=== PATIENT | female | born 1935 | race Caucasian/White ===

== ENCOUNTER 2018-11-10 20:54 | Observation (INO) | payer MEDICARE ==
[2018-11-10] MEDS ORDERED: Ondansetron ODT 4 MG TAB ONE (21:07)
[2018-11-10] MEDS ORDERED: Meclizine HCl 25 MG TAB ONE (21:42)
[2018-11-10 21:48] LABS: #Basophils 0.1 thou/uL (0.0-0.2); #Eosinphils 0.3 thou/uL (0.0-0.7); #Lymphocytes 2.3 thou/uL (1.20-3.40); #Monocytes 0.7 thou/uL (0.11-0.59); %Basophils 1.2 % (0.0-1.0); %Eosinophils 2.7 % (0.0-10.0); %Lymphocytes 24.3 % (21.0-51.0); %Monocytes 7.5 % (0.0-10.0); %Neutrophils 64.3 % (42.0-75.0); Mean Corpuscular Hemoglobin 28.7 pg (27.0-31.0); Mean Corpuscular Volume 86.9 fL (78.0-98.0); Mean Platelet Volume 7.5 fL (7.4-10.4); Platelet Count 343 thou/uL (130-400); RBC Distribution Width 12.2 % (11.5-14.5); Red Blood Cell (RBC) Count 3.83 mill/uL (4.20-5.40); White Blood Cell (WBC) Count 9.4 thou/uL (4.8-10.8)
[2018-11-10 21:54] LABS: PTT 29.5 SEC (22.9-36.1); Prothrombin Time 13.4 SEC (12.0-14.7)
[2018-11-10 22:07] LABS: ALT (SGPT) 11 U/L (8-55); AST (SGOT) 21 U/L (5-34); Albumin 3.8 g/dL (3.4-4.8); Alkaline Phosphatase 106 U/L (40-150); Anion Gap 17 mmol/L (10-20); BUN (Urea Nitrogen) 18 mg/dL (9.8-20.1); Bilirubin, Total 0.6 mg/dL (0.2-1.2); Calc. Creatinine Clearance 0 mL/min (70-130); Calcium 9.4 mg/dL (7.8-10.44); Carbon Dioxide 22 mmol/L (23-31); Chloride 92 mmol/L (98-107); Estimated GFR-MDRD 49; Globulin 3.6 g/dL (2.4-3.5); Glucose 99 mg/dL (83-110); Potassium 4.4 mmol/L (3.5-5.1); Protein, Total 7.4 g/dL (6.0-8.3); Sodium 127 mmol/L (136-145)
[2018-11-10 22:16] LABS: Bilirubin Negative (Negative); Blood, Urine Negative (Negative); Clarity CLEAR (Clear); Glucose, Urine (Dipstick) Negative (Negative); Leukocyte Negative (Negative); Nitrite Negative (Negative); Protein, Urine (Dipstick) Negative (Neg-Trace); Urobilinogen 0.2 mg/dL (0.2-1.0); pH, Urine 7.5 (5.0-9.0)
--- NOTE | 2018-11-10 22:19 | CT ---
CT OF THE BRAIN WITHOUT CONTRAST: 11/10/18 HISTORY: Acute vertigo. FINDINGS: Comparison made with exam of 03/03/15. Changes of chronic small vessel ischemic disease are again seen. The ventricular size is stable and t he basilar cisterns patent. No evidence of acute infarct, hemorrhage, midline shift or abnormal extra -axial fluid collections are seen. The bone calvarium is intact. There is mucosal disease in the para nasal sinuses. Air fluid levels are also seen in the maxillary sinuses. The mastoid air cells are hood ar. IMPRESSION: 1. No CT evidence of acute intracranial process. 2. Acute on chronic sinusitis. POS: [facility]
[2018-11-11 01:46] LABS: Troponin I Less than 0.010 ng/mL (< 0.028)
[2018-11-11 05:03] LABS: Troponin I Less than 0.010 ng/mL (< 0.028)
[2018-11-11] MEDS ORDERED: Ondansetron ODT 4 MG TAB SL PRN (06:41)
[2018-11-11] MEDS ORDERED: Ondansetron PF 4 MG/2 ML Vial IVP PRN ×2 (06:41→15:37)
[2018-11-11] MEDS ORDERED: Acetaminophen 500 MG TAB PO PRN (15:37)
[2018-11-11] MEDS ORDERED: hydrALAZINE 20 MG/ML VIAL SLOW IVP PRN (15:37)
[2018-11-11] MEDS ORDERED: Ondansetron ODT 4 MG TAB PO PRN (15:37)
[2018-11-11] MEDS: Sodium Chloride 0.9% 1,000 ML IV SCH (17:58)
[2018-11-11 19:58] VITALS: BMI 18.2
[2018-11-11] MEDS ORDERED: Meclizine HCl 25 MG TAB PO SCH (20:45)
[2018-11-11] MEDS: Lisinopril 20 MG TAB PO SCH (20:59)
[2018-11-11] MEDS: Carvedilol 25 MG TAB PO SCH (20:59)
[2018-11-11] MEDS ORDERED: Atorvastatin Calcium 20 MG TAB PO SCH (21:00)
[2018-11-11] MEDS ORDERED: Digoxin 0.125 MG TAB PO SCH (21:00)
[2018-11-11] MEDS ORDERED: Amlodipine 5 MG TAB PO SCH (21:00)
[2018-11-11] MEDS ORDERED: Aspirin 325 MG TAB PO SCH (21:00)
[2018-11-11] MEDS ORDERED: Famotidine 20 MG TAB PO SCH (21:00)
[2018-11-12] MEDS: Sodium Chloride 0.9% 1,000 ML IV SCH ×2 (00:29→03:51)
--- NOTE | 2018-11-12 01:51 | HP ---
PRIMARY CARE PROVIDER: Ajay Askew MD CHIEF COMPLAINT: Dizziness and nausea. HISTORY OF PRESENT ILLNESS: This is an 83-year-old female, who presents to [facility] Emergency Department after experiencing sudden onset of dizziness, nausea and emesis while at home. The patient states the symptoms began around 16:30 p.m. on 11/10/2018 with several episodes of emesis and nausea. The patient denied any unilateral weakness, visual disturbance, loss of consciousness, recent travel history, family members with similar symptoms or fever. The patient states she has been feeling well up until this episode but does state approximately 3 to 4 years prior to this evaluation, she had an episode of dizziness followed by syncope and confusion. The family reports the patient did seem confused and glazed in her eyes while talking with her, and became concerned. The patient's family states that the patient has had no change to her chronic medication regimen. No new exposures, travel history, diarrhea, or recent antibiotics. The patient did not try any specific alleviating medications. In the emergency room, the patient underwent general evaluation including CT imaging of the brain showing no acute process. Metabolic screening did show evidence of hyponatremia with sodium of 127 at which point, the patient received intravenous normal saline x1 liter in addition to meclizine 25 mg x1 dose. The patient also received Zofran and states her symptoms have resolved. PAST MEDICAL HISTORY: 1. Intermittent vertigo. 2. Question of early Alzheimer's dementia. 3. Hyperlipidemia. 4. Hypertension. 5. History of syncope. 6. Chronic sinusitis. 7. Chronic kidney disease, stage 3. PAST SURGICAL HISTORY: 1. Status post sinus surgery. 2. Status post esophageal dilation. 3. Status post hysterectomy. 4. Status post back surgery. CURRENT MEDICATIONS: 1. Norvasc 5 mg p.o. at bedtime. 2. Enteric-coated aspirin 325 mg p.o. at bedtime. 3. Lipitor 20 mg p.o. at bedtime. 4. Carvedilol 12.5 mg p.o. b.i.d. 5. Digoxin 0.125 mg p.o. at bedtime. 6. Furosemide 20 mg p.o. daily. 7. Lisinopril 20 mg p.o. b.i.d. 8. Omeprazole 20 mg p.o. daily. ALLERGIES: NO KNOWN DRUG ALLERGIES. FAMILY HISTORY: Father of complications of coronary artery disease. SOCIAL HISTORY: The patient is , accompanied by her and daughter in the hospital. Resides near [place], [place]. No current alcohol, tobacco, or illicit drug use. Functional of all activities of daily living. REVIEW OF SYSTEMS: CONSTITUTIONAL: Negative for weight loss or gain, ability to conduct usual activities. SKIN: Negative for rash, itching. EYES: Negative for double vision, pain. ENT/MOUTH: Negative for nose bleeding, neck stiffness, pain, tenderness. CARDIOVASCULAR: Negative for palpitations, dyspnea on exertion, orthopnea. RESPIRATORY: Negative for shortness of breath, wheezing, cough, hemoptysis, fever or night sweats. GASTROINTESTINAL: Negative for poor appetite, abdominal pain, heartburn, nausea, vomiting, constipation, or diarrhea. GENITOURINARY: Negative for urgency, frequency, dysuria, nocturia. MUSCULOSKELETAL: Negative for pain, swelling. NEUROLOGIC/PSYCHIATRIC: Negative for anxiety, depression. ALLERGY/IMMUNOLOGIC: Negative for skin rash, bleeding tendency. Otherwise, negative except as stated per HPI. PHYSICAL EXAMINATION: VITAL SIGNS: On admission, blood pressure 129/60, pulse 63, respiratory rate 14, temperature 97.7 degrees Fahrenheit, O2 saturation 98% on room air. GENERAL APPEARANCE: This is an 83-year-old female, alert and oriented x3, pleasant, responsive, in no acute distress. HEENT: Pupils are equal, round, reactive to light and accommodation. Extraocular muscles are intact. No scleral icterus. No conjunctival injection. No nystagmus noted. Nares patent. OP is clear. Teeth in good repair. Oral mucosa dry. NECK: Supple. No cervical adenopathy. No thyromegaly. No carotid bruits. No JVD appreciated. Cervical spine with full active and passive range of motion. No meningeal signs noted. CHEST: Lungs are clear to auscultation bilaterally. CARDIOVASCULAR: S1-S2 without noted murmur, rub, or gallop. ABDOMEN: Rounded, soft, nontender, and nondistended. Bowel sounds are positive in all 4 quadrants. No hepatosplenomegaly. No abdominal bruits. No rebound or guarding appreciated. EXTREMITIES: Warm and dry with fair turgor. No clubbing, cyanosis, or asymmetric edema appreciated. Pulses palpable distally at the dorsalis pedis, posterior tibial and popliteal arteries bilaterally. Capillary refill less than 2 seconds. NEUROLOGIC: Cranial nerves 2 through 12 are grossly intact. No focal or lateralizing signs appreciated. PERTINENT LAB AND X-RAY FINDINGS: Sodium 127, potassium 4.4, chloride 92, CO2 of 22, BUN 18, creatinine 1.07, estimated GFR 49, glucose 99, calcium 9.4, lactic acid level 0.8. LFTs within normal limits. Troponin I negative x3. CBC showed a white blood cell count of 9.4, hemoglobin 11, hematocrit 33, and platelet count 343. Urinalysis negative. CT of the brain without contrast dated 11/10/2018 by my review shows no acute intracranial process. EKG dated 11/10/2018 by my review shows sinus mechanism with heart rates in the 50s. Attenuated R-waves noted in the precordial leads. Normal axis. No acute ST-T wave changes noted. ASSESSMENT AND PLAN: 1. Vertigo. Suspect positional vertigo. We will continue IV fluids with normal saline 100 mL/h. Trial meclizine 25 mg p.o. q.6 hours p.r.n. Check TSH, magnesium level, and digoxin level in the a.m. 2. Hyponatremia. Suspect secondary to dehydration in conjunction with diuretic therapy. Hold all diuretics. Continue intravenous normal saline at 100 mL/h. Repeat sodium level in the a.m. 3. Nausea and vomiting. We will continue antiemetics with Zofran. IV fluids as stated previously. 4. Hypertension. Resume home antihypertensive regimen and monitor clinical response. 5. Normocytic anemia. Appears chronic and stable when compared to previous hemoglobins dating back to 2011. No current evidence to suggest acute blood loss. Repeat CBC in the a.m. 6. Prophylaxis. SCDs while in bed. Pepcid 20 mg p.o. b.i.d. 7. Code status is full. Surrogate medical decision maker is patient's spouse. Job ID: [id number]
[2018-11-12] MEDS ORDERED: Meclizine HCl 25 MG TAB PO SCH (06:00)
[2018-11-12 07:30] LABS: Anion Gap 11 mmol/L (10-20); BUN (Urea Nitrogen) 11 mg/dL (9.8-20.1); Calc. Creatinine Clearance 39 mL/min (70-130); Calcium 9.3 mg/dL (7.8-10.44); Carbon Dioxide 24 mmol/L (23-31); Chloride 103 mmol/L (98-107); Digoxin 0.72 ng/mL (0.8-2.0); Estimated GFR-MDRD 62; Glucose 85 mg/dL (83-110); Magnesium 1.8 mg/dL (1.6-2.6); Potassium 4.2 mmol/L (3.5-5.1); Sodium 134 mmol/L (136-145)
[2018-11-12 07:41] LABS: Eosinophils 3 % (0-10); Hemoglobin 11.1 g/dL (12.0-16.0); Lymphocytes 28 % (21-51); MDiff Complete? YES; Mean Corpuscular HGB CONC 32.6 g/dL (32.0-36.0); Mean Corpuscular Hemoglobin 29.2 pg (27.0-31.0); Mean Corpuscular Volume 89.8 fL (78.0-98.0); Mean Platelet Volume 7.5 fL (7.4-10.4); Monocytes 5 % (0-10); Neutrophil 64 % (42-75); Platelet Count 285 thou/uL (130-400); RBC Distribution Width 12.4 % (11.5-14.5); Red Blood Cell (RBC) Count 3.79 mill/uL (4.20-5.40); White Blood Cell (WBC) Count 8.6 thou/uL (4.8-10.8)
[2018-11-12 07:58] VITALS: TEMP 96.9
[2018-11-12] MEDS ORDERED: Prevnar 13-Val Conj/PF 0.5 ML SYRINGE IM ONE (09:00)
[2018-11-12] MEDS ORDERED: Famotidine 20 MG TAB PO SCH (09:00)
[2018-11-12] MEDS: Carvedilol 25 MG TAB PO SCH (09:53)
[2018-11-12] MEDS: Lisinopril 20 MG TAB PO SCH (09:54)
[2018-11-12 10:00] VITALS: BP 132/61
--- NOTE | 2018-11-12 10:19 | PDOC.EVN ---
Event Note - Event Note Event Note: DC SUMMARY #[id number]
--- NOTE | 2018-11-12 20:51 | DIS ---
DATE OF ADMISSION: 11/10/2018 DATE OF DISCHARGE: 11/12/2018 ADMITTING DIAGNOSES: Vertigo, hyponatremia, altered mental status, confusion, nausea, vomiting. DISCHARGE DIAGNOSES: 1. Vertigo, resolved. 2. Hyponatremia, resolved. 3. Nausea, vomiting, confusion, resolved. HOSPITAL COURSE: This is an 83-year-old female, who presented to the hospital with the symptoms mentioned above, was admitted to Internal Medicine Team, found to have a low sodium. Given IV fluids, repeat sodium levels were found to be 132. Symptoms completely resolved. The patient's family stated that the family does not eat a whole bunch of food and has been drinking too much water as well. The patient's family was advised that the patient should have salt added to her diet and check her blood pressure. If the systolic blood pressure is below 140, they can continue adding salt to her diet; however, systolic blood pressure is above 140. They should hold off on adding more salt to her diet. The patient's symptoms were resolved given her hyponatremia resolution and thus, family was advised that they should continue watching her dietary intake. Repeat lab work in 1-2 weeks with her PCP, make sure sodium levels are not dropping. The patient is stable upon time of discharge. Case and plan discussed with the entire family and the patient at length. They understood and agreed with this plan. DISPOSITION: Home. FOLLOWUP: Follow up with PCP within 1 week. MEDICATIONS: See MAR. ACTIVITY: As tolerated with assistance as needed. CONDITION: Stable. PROGNOSIS: Good. Once again case and plan discussed with patient at length. Family at bedside, they understand and agree with this plan. Job ID: [id number]
== END 2018-11-12 12:27 | disposition home or self-care (01) ==
LOC: ERS 20:54 → INTOOBSV 22:36 → ERHOLD 22:36 → 2NO 11-11 13:39
PROVIDERS: ADMIT Hospitalist; ATTEND Hospitalist
DX: R42 Dizziness and giddiness (principal); E87.1 Hypo-osmolality and hyponatremia; R11.2 Nausea with vomiting, unspecified; R41.0 Disorientation, unspecified; E78.5 Hyperlipidemia, unspecified; J32.9 Chronic sinusitis, unspecified; I12.9 Hypertensive chronic kidney disease with stage 1 through stage 4 chronic kidney disease, or unspecified chronic kidney disease; N18.3 Chronic kidney disease, stage 3 (moderate); D63.1 Anemia in chronic kidney disease; Z79.82 Long term (current) use of aspirin; Z79.899 Other long term (current) drug therapy
CPT/HCPCS: 51701; 70450; 80048; 80053; 80162; 81003; 82962; 83605; 83735; 84443; 84484 ×3; 85007; 85025; 85027; 85610; 85730; 90670; 93005; 96360; 96361 ×2; 99285; G0009; G0378; 36415; 36416; 90471; A4353; J8499; Q0162

== ENCOUNTER 2019-02-28 21:34 | Observation (INO) | payer MEDICARE ==
[2019-02-28 21:59] LABS: #Basophils 0.1 thou/uL (0.0-0.2); #Eosinphils 0.3 thou/uL (0.0-0.7); #Monocytes 1.1 thou/uL (0.11-0.59); #Neutrophils 5.7 thou/uL (1.40-6.50); %Basophils 0.6 % (0.0-1.0); %Eosinophils 2.7 % (0.0-10.0); %Lymphocytes 29.6 % (21.0-51.0); %Monocytes 10.4 % (0.0-10.0); %Neutrophils 56.7 % (42.0-75.0); Mean Corpuscular HGB CONC 34.2 g/dL (32.0-36.0); Mean Corpuscular Hemoglobin 29.6 pg (27.0-31.0); Mean Corpuscular Volume 86.5 fL (78.0-98.0); Mean Platelet Volume 6.8 fL (7.4-10.4); Platelet Count 372 thou/uL (130-400); RBC Distribution Width 12.4 % (11.5-14.5); Red Blood Cell (RBC) Count 3.72 mill/uL (4.20-5.40); White Blood Cell (WBC) Count 10.1 thou/uL (4.8-10.8)
--- NOTE | 2019-02-28 22:02 | RAD ---
XR Chest 1 View Portable HISTORY: Chest pain COMPARISON: None. FINDINGS: Heart size is within normal limits there are atherosclerotic changes of aorta the lungs are clear of infiltrates there are mild chronic lung changes seen. The bones appear demineralized. IMPRESSION: No active intrathoracic disease.
[2019-02-28 22:23] LABS: ALT (SGPT) 20 U/L (8-55); AST (SGOT) 36 U/L (5-34); Albumin 3.8 g/dL (3.4-4.8); Alkaline Phosphatase 106 U/L (40-150); Anion Gap 13 mmol/L (10-20); BUN (Urea Nitrogen) 17 mg/dL (9.8-20.1); Bilirubin, Total 0.5 mg/dL (0.2-1.2); CK (CPK) 75 U/L (29-168); Calc. Creatinine Clearance 0 mL/min (70-130); Calcium 9.4 mg/dL (7.8-10.44); Carbon Dioxide 25 mmol/L (23-31); Chloride 93 mmol/L (98-107); Estimated GFR-MDRD 51; Globulin 3.7 g/dL (2.4-3.5); Glucose 97 mg/dL (83-110); Potassium 5.2 mmol/L (3.5-5.1); Protein, Total 7.5 g/dL (6.0-8.3); Sodium 126 mmol/L (136-145)
[2019-02-28] MEDS ORDERED: Aspirin 325 MG TAB ONE (22:29)
[2019-03-01 01:13] LABS: Troponin I Less than 0.010 ng/mL (< 0.028)
[2019-03-01 02:00] VITALS: BMI 21.1
[2019-03-01 04:39] LABS: Troponin I Less than 0.010 ng/mL (< 0.028)
[2019-03-01] MEDS ORDERED: Meclizine HCl 25 MG TAB PO PRN (08:49)
[2019-03-01] MEDS ORDERED: Non-Formulary Item 1 EACH (Carvedilol [Carvedilol] 12.5 MG) PO SCH (09:00)
[2019-03-01] MEDS ORDERED: Non-Formulary Item 1 EACH (Omeprazole [Omeprazole] 20 MG) PO SCH (09:00)
[2019-03-01] MEDS: Lisinopril 20 MG TAB PO SCH ×2 (09:15→20:19)
[2019-03-01 09:46] LABS: Digoxin 0.86 ng/mL (0.8-2.0)
[2019-03-01 10:16] LABS: ALT (SGPT) 144 U/L (8-55); AST (SGOT) 155 U/L (5-34); Albumin 3.6 g/dL (3.4-4.8); Alkaline Phosphatase 153 U/L (40-150); Anion Gap 14 mmol/L (10-20); BUN (Urea Nitrogen) 16 mg/dL (9.8-20.1); Bilirubin, Total 0.3 mg/dL (0.2-1.2); Calc. Creatinine Clearance 39 mL/min (70-130); Calcium 9.8 mg/dL (7.8-10.44); Carbon Dioxide 22 mmol/L (23-31); Chloride 98 mmol/L (98-107); Estimated GFR-MDRD 62; Globulin 3.3 g/dL (2.4-3.5); Glucose 88 mg/dL (83-110); Potassium 4.2 mmol/L (3.5-5.1); Protein, Total 6.9 g/dL (6.0-8.3); Sodium 130 mmol/L (136-145)
--- NOTE | 2019-03-01 10:18 | ULT ---
RIGHT UPPER QUADRANT ULTRASOUND: History: Right upper quadrant pain. FINDINGS: The liver, right kidney, and visualized portions of the pancreas are unremarkable. Multiple shadowing gallstones are seen without gallbladder wall thickening or pericholecystic fluid. The common duct me asures 3 mm. No free fluid is seen in Koo's pouch. IMPRESSION: Cholelithiasis. POS: [facility]
[2019-03-01] MEDS: Carvedilol 6.25 MG TAB PO SCH ×2 (12:49→20:18)
--- NOTE | 2019-03-01 13:15 | NM ---
NM Cardiac Stress W EF WF History: Chest pain Comparison: None. Findings: Stress and rest performed after the intravenous administration 31.9 and 9 mCi technetium 99 M sestamibi, respectively. Adequate left ventricular uptake of radiotracer. No scar or ischemia. Normal wall motion. Calculated ejection fraction is 91%. Impression: Normal nuclear medicine cardiac stress test and ejection fraction.
[2019-03-01] MEDS ORDERED: Senokot S 8.6-50 MG TAB PO PRN (14:48)
[2019-03-01] MEDS ORDERED: ADENOSINE 60 MG/20 ML VIAL ONE (15:01)
[2019-03-01] MEDS: Famotidine 20 MG TAB PO SCH (20:19)
[2019-03-01] MEDS ORDERED: Digoxin 0.125 MG TAB PO SCH (21:00)
[2019-03-01] MEDS ORDERED: Amlodipine 5 MG TAB PO SCH (21:00)
[2019-03-01] MEDS ORDERED: Atorvastatin Calcium 20 MG TAB PO SCH (21:00)
[2019-03-01] MEDS ORDERED: Aspirin 325 MG TAB PO SCH (21:00)
--- NOTE | 2019-03-01 23:59 | HP ---
PRIMARY CARE PHYSICIAN: Ajay Askew MD CHIEF COMPLAINT: Abdominal/chest pain. HISTORY OF PRESENT ILLNESS: Ms. Mckeon is an 83-year-old female, who reports that she started having upper abdominal and chest pain while watching TV last night. Reports that it appeared suddenly and lasted until she came to the ER. states that the patient has been diagnosed with vertigo. She denied any nausea with it. Denied any shortness of breath, any diaphoresis. Does have a past medical history pertinent for hypertension, hyperlipidemia, early stage Alzheimer's. EKG in the emergency room shows a normal sinus rhythm, beats per minute 69, conduction normal, ST segments normal, T-waves normal. She was given 500 mL of normal saline and aspirin. Troponins x3 were undetectable. The patient was admitted to the observation unit for further risk stratification for chest pain. On exam this morning by the hospitalist [employer], further discussion about exactly where the pain was and she describes really epigastric right upper quadrant pain, denied any currently, did not have any this morning. Did not have a Perkins sign on exam. Labs were initially pertinent for a low sodium of 126, potassium of 5.2, chloride 93, AST at 36, ALT 20, alkaline phosphatase at 106, globulin at 3.7, and a lipase of 68. This morning when it was rechecked, sodium improved to 130, potassium normalized to 4.2, but her liver enzymes, her AST jumped to 155, ALT jumped to 144, alkaline phosphatase at 153. An ultrasound was ordered of her right upper quadrant, which showed multiple shadowing gallstones without gallbladder wall thickening or any fluid. Common bile duct measures 3 mm. Impression, cholelithiasis. REVIEW OF SYSTEMS: The patient reports lower chest pain, upper abdominal pain yesterday. Denies any symptoms today. Denies any nausea. Does report intermittent vertigo. Denies any mental status changes. All other systems are reviewed and are negative unless mentioned in the HPI. PAST MEDICAL HISTORY: Hyperlipidemia, hypertension, vertigo, early stage Alzheimer's. PAST SURGICAL HISTORY: Sinus surgery, throat expansion, dilatation, hysterectomy, had some back surgery. PSYCHIATRIC HISTORY: None. SOCIAL HISTORY: Lives at home with her family. Denies any alcohol or drug use. Has no smoking history. KNOWN ALLERGIES: None. CURRENT MEDICATIONS: 1. Amlodipine 5 mg p.o. at bedtime. 2. Aspirin 325 mg p.o. at bedtime. 3. Atorvastatin 20 mg p.o. at bedtime. 4. Coreg 12.5 mg p.o. b.i.d. 5. Digoxin 0.125 mg p.o. at bedtime. 6. Lisinopril 20 mg p.o. b.i.d. 7. Prilosec 20 mg p.o. daily. 8. Meclizine 25 mg p.o. q.8 hours as needed p.r.n. for vertigo. PHYSICAL EXAMINATION: VITAL SIGNS: Blood pressure 119/58, pulse is 64, respirations are 17, temp is 97.7, PO2 saturations are 97% on room air. CONSTITUTIONAL: The patient appears in no distress. She appears pain free. She is oriented to person, place, and time. HEENT: Head is atraumatic and normocephalic. Eyes, eyelids are normal to inspection. Pupils are equally round and reactive to light. ENT, mucous membranes are moist. Mouth exam is normal. NECK: Normal range of motion. Trachea is midline. RESPIRATORY/CHEST: No respiratory distress. Breath sounds are clear. CARDIOVASCULAR: Regular heart rate and rhythm. Heart sounds are normal. ABDOMEN: Bowel sounds are normal. No peritoneal signs. Bowel sounds are heard. There is no tenderness on palpation. Perkins sign is negative. BACK: Normal inspection. Normal range of motion. No tenderness. EXTREMITIES: Upper extremities; motor strength is normal, sensation intact, radial pulses are equal bilaterally. Lower extremities; normal range of motion, motor strength is normal, sensation intact, pedal pulses are normal. NEURO: Speech is normal. The patient is oriented to person, place, and time. Has some recent memory lapses. There is no focal motor or sensory deficits. SKIN: Warm, dry, normal in color. PSYCH: Has a normal affect. ASSESSMENT AND PLAN: 1. Chest pain. We will trend troponins. The patient is agreeable to a stress test to rule that out. 2. Elevated liver enzymes. We have ordered an abdominal ultrasound. We will recheck the liver, a comprehensive metabolic panel in the morning. The patient has eaten after the stress test. If her liver enzymes decrease, the patient will most likely be sent home for followup of the gallbladder with stones in the ultrasound as the patient is no longer complaining of any pain and has a negative abdominal exam. 3. History of hypertension. We will restart home medications. We will trend. 4. History of hyperlipidemia. We will hold her Lipitor for tonight with those elevated liver enzymes. Restart if they drop. 5. We will check fasting lipid panel in the morning. 6. Gastrointestinal and deep venous thrombosis prophylaxis started. 7. Case discussed with Dr. Arnett who agrees with plan. Job ID: [id number]
[2019-03-02 05:06] LABS: ALT (SGPT) 100 U/L (8-55); AST (SGOT) 62 U/L (5-34); Albumin 3.6 g/dL (3.4-4.8); Alkaline Phosphatase 134 U/L (40-150); Anion Gap 11 mmol/L (10-20); BUN (Urea Nitrogen) 11 mg/dL (9.8-20.1); Bilirubin, Total 0.4 mg/dL (0.2-1.2); Calc. Creatinine Clearance 39 mL/min (70-130); Calcium 9.5 mg/dL (7.8-10.44); Carbon Dioxide 28 mmol/L (23-31); Cardiac Risk 2.3 (Less than 4.5); Chloride 98 mmol/L (98-107); Cholesterol 114 mg/dl (< 200 Desired); Estimated GFR-MDRD 62; Globulin 3.1 g/dL (2.4-3.5); Glucose 86 mg/dL (83-110); HDL Cholesterol 50 mg/dL (>60 Neg Risk); LDL Cholesterol, Calculated 52 mg/dL; Potassium 4.6 mmol/L (3.5-5.1); Protein, Total 6.7 g/dL (6.0-8.3); Sodium 132 mmol/L (136-145); Triglycerides 62 mg/dL (Less than 150)
[2019-03-02 07:37] VITALS: BP 141/67; TEMP 98
[2019-03-02] MEDS: Carvedilol 6.25 MG TAB PO SCH (08:29)
[2019-03-02] MEDS: Lisinopril 20 MG TAB PO SCH (08:30)
[2019-03-02] MEDS: Famotidine 20 MG TAB PO SCH (08:30)
[2019-03-02] MEDS ORDERED: Enoxaparin Sodium 30 MG/0.3 ML SYRINGE SC SCH (09:00)
== END 2019-03-02 11:31 | disposition home or self-care (01) ==
LOC: ERS 21:34 → 2SW 22:42
PROVIDERS: ADMIT Family Medicine; ATTEND Family Medicine
DX: R07.9 Chest pain, unspecified (principal); R10.11 Right upper quadrant pain; R94.5 Abnormal results of liver function studies; I10 Essential (primary) hypertension; E78.5 Hyperlipidemia, unspecified; G30.9 Alzheimer's disease, unspecified; F02.80 Dementia in other diseases classified elsewhere, unspecified severity, without behavioral disturbance, psychotic disturbance, mood disturbance, and anxiety; K80.20 Calculus of gallbladder without cholecystitis without obstruction; Z79.82 Long term (current) use of aspirin; Z79.899 Other long term (current) drug therapy
CPT/HCPCS: 71045; 76705; 78452; 80053 ×3; 80061; 80162; 82550; 83690; 84484 ×3; 85025; 93005; 93017; 96360; 99285; A9500; G0378 ×4; 36415; J0153

== ENCOUNTER 2019-08-18 23:41 | Emergency (ER) | payer MEDICARE ==
--- NOTE | 2019-08-19 06:20 | CT ---
CT BRAIN WITHOUT CONTRAST: INDICATIONS: History of fall. COMPARISON: Prior exam dated 11/10/2018. FINDINGS: No acute infarct, hemorrhage or hydrocele is present. There is moderate chronic small vessel white ma tter ischemic change. No midline shift is evident. There is now complete opacification of the left sp henoid air cell with some reactive surrounding osteitis, especially as per changes of chronic sphenoi d sinusitis. There is also complete opacification of the frontal sinuses and the anterior and mid eth moid air cells. There is near complete opacification of the maxillary sinuses with air-fluid levels. The mastoid air cells are clear. The skull is intact. There is a left parietal scalp contusion. IMPRESSION: 1. No acute intracranial abnormality. 2. Left parietal scalp contusion. 3. Severe paranasal sinus disease with likely an acute sinusitis component involving the maxillary si nuses. POS: [facility]
--- NOTE | 2019-08-19 06:21 | CT ---
CT CERVICAL SPINE WITHOUT CONTRAST: INDICATIONS: History of fall with neck pain. COMPARISON: None. FINDINGS: No acute fracture or subluxation is evident. There is moderate multilevel spondylosis of the cervical spine. There is diffuse osteopenia. The prevertebral soft tissues are normal appearing. The lung api martha are clear. IMPRESSION: No acute fracture or subluxation. POS: [facility]
== END 2019-08-19 01:35 | disposition home or self-care (01) ==
LOC: ERS 23:41
DX: S00.01XA Abrasion of scalp, initial encounter (principal); E78.5 Hyperlipidemia, unspecified; I10 Essential (primary) hypertension; G30.9 Alzheimer's disease, unspecified; Z79.82 Long term (current) use of aspirin; Z79.899 Other long term (current) drug therapy; W01.190A Fall on same level from slipping, tripping and stumbling with subsequent striking against furniture, initial encounter; Y92.009 Unspecified place in unspecified non-institutional (private) residence as the place of occurrence of the external cause
CPT/HCPCS: 70450; 72125

== ENCOUNTER 2021-04-10 14:17 | Outpatient (CLI) | payer MEDICARE | END 2021-04-10 14:18 | disposition home or self-care (01) | LOC: BICRAD 14:17 | PROVIDERS: ATTEND Internal Medicine | DX: R06.00 Dyspnea, unspecified (principal); J98.4 Other disorders of lung | CPT/HCPCS: 71046 ==

== ENCOUNTER 2021-04-27 17:21 | Inpatient (IN) | payer MEDICARE ==
[~2021-04-27 17:21] MED LIST: Iopamidol-370 76% 500 ML 1 ML ONE
[2021-04-27 17:59] LABS: #Eosinphils 0.1 thou/uL (0.0-0.7); #Monocytes 0.6 thou/uL (0.11-0.59); %Basophils 0.4 % (0.0-1.0); %Eosinophils 1.4 % (0.0-10.0); %Monocytes 5.9 % (0.0-10.0); %Neutrophils 61.3 % (42.0-75.0); Hemoglobin 12.9 g/dL (12.0-16.0); Mean Corpuscular HGB CONC 33.7 g/dL (32.0-36.0); Mean Corpuscular Hemoglobin 29.3 pg (27.0-31.0); Mean Corpuscular Volume 87.1 fL (78.0-98.0); Mean Platelet Volume 6.9 fL (7.4-10.4); Platelet Count 362 thou/uL (130-400); RBC Distribution Width 13.1 % (11.5-14.5); Red Blood Cell (RBC) Count 4.39 mill/uL (4.20-5.40); White Blood Cell (WBC) Count 9.8 thou/uL (4.8-10.8)
[2021-04-27 18:13] LABS: ALT (SGPT) 11 U/L (8-55); AST (SGOT) 16 U/L (5-34); Albumin 3.2 g/dL (3.4-4.8); Alkaline Phosphatase 132 U/L (40-110); Anion Gap 17 mmol/L (10-20); BUN (Urea Nitrogen) 10 mg/dL (9.8-20.1); Bilirubin, Total 0.5 mg/dL (0.2-1.2); CK (CPK) 71 U/L (29-168); Calc. Creatinine Clearance 0 mL/min (70-130); Calcium 9.1 mg/dL (7.8-10.44); Carbon Dioxide 18 mmol/L (23-31); Chloride 97 mmol/L (98-107); Globulin 3.1 g/dL (2.4-3.5); Glucose 125 mg/dL (83-110); Lipase 51 U/L (8-78); Potassium 4.1 mmol/L (3.5-5.1); Protein, Total 6.3 g/dL (5.8-8.1); Sodium 128 mmol/L (136-145)
[2021-04-27 18:17] LABS: Acetaminophen Less than 6.0 mcg/mL (10.0-30.0); Alcohol Less than 10 mg/dL (Less than 10); Salicylate Less than 8.0 mg/dL (15.0-30.0)
[2021-04-27 19:14] LABS: SARS-CoV-2 NAA Rapid Test Not Detected (NotDetected)
[2021-04-27] MEDS ORDERED: metroNIDAZOLE 500 MG/100 ML BAG ONE (19:29)
[2021-04-27] MEDS ORDERED: Ondansetron ODT 4 MG TAB PO PRN (19:32)
[2021-04-27] MEDS ORDERED: Acetaminophen 650 MG Suppository PR PRN (19:32)
[2021-04-27] MEDS ORDERED: Ondansetron PF 4 MG/2 ML Vial IVP PRN (19:32)
[2021-04-27] MEDS ORDERED: Electrolyte Replacement Protocol 1 EACH FS SCH (19:45)
[2021-04-27 23:27] LABS: Lactic Acid 2.4 mmol/L (0.5-2.2)
[2021-04-27] MEDS: Sodium Chloride 0.9% 1,000 ML IV SCH (23:31)
[2021-04-27 23:33] LABS: Magnesium 1.9 mg/dL (1.6-2.6)
[2021-04-28 00:30] LABS: Bilirubin Negative (Negative); Blood, Urine Negative (Negative); Clarity Clear (Clear); Glucose, Urine (Dipstick) Normal (Negative); Ketone, Urine Negative (Negative); Leukocyte Negative Leu/uL (Negative); Nitrite Negative (Negative); Protein, Urine (Dipstick) Negative (Neg-Trace); Specific Gravity, Urine 1.027 (1.002-1.036); Urobilinogen Normal mg/dL (Less than 2)
[2021-04-28 00:38] LABS: Amphetamine Not Detected (NotDetected); Barbiturates Screen Not Detected (NotDetected); Benzodiazepine Screen Not Detected (NotDetected); Cocaine Metabolite Screen Not Detected (NotDetected); Methadone Not Detected (NotDetected); Methamphetamine Not Detected (NotDetected); Opiate Screen Detected (NotDetected); Oxycodone Screen Not Detected (NotDetected); Phencyclidine (PCP) Not Detected (NotDetected); THC/Cannabinoid Screen Not Detected (NotDetected); Tricyclic Screen Not Detected (NotDetected)
[2021-04-28 00:43] VITALS: BMI 18.6
[2021-04-28] MEDS: metroNIDAZOLE 500 MG in Premix Bag 1 BAG IVPB SCH ×3 (03:55→21:30)
[2021-04-28 04:54] LABS: #Lymphocytes 0.7 thou/uL (1.20-3.40); #Monocytes 0.7 thou/uL (0.11-0.59); #Neutrophils 14.7 thou/uL (1.40-6.50); %Basophils 0.1 % (0.0-1.0); %Lymphocytes 4.6 % (21.0-51.0); %Monocytes 4.2 % (0.0-10.0); Hemoglobin 12.2 g/dL (12.0-16.0); Mean Corpuscular HGB CONC 31.8 g/dL (32.0-36.0); Mean Corpuscular Hemoglobin 28.5 pg (27.0-31.0); Mean Corpuscular Volume 89.6 fL (78.0-98.0); Mean Platelet Volume 6.8 fL (7.4-10.4); Platelet Count 264 thou/uL (130-400); RBC Distribution Width 13.2 % (11.5-14.5); Red Blood Cell (RBC) Count 4.27 mill/uL (4.20-5.40); White Blood Cell (WBC) Count 16.1 thou/uL (4.8-10.8)
[2021-04-28 05:34] LABS: Anion Gap 16 mmol/L (10-20); BUN (Urea Nitrogen) 11 mg/dL (9.8-20.1); Calc. Creatinine Clearance 33 mL/min (70-130); Calcium 8.7 mg/dL (7.8-10.44); Carbon Dioxide 14 mmol/L (23-31); Chloride 103 mmol/L (98-107); Glucose 120 mg/dL (83-110); Potassium 4.1 mmol/L (3.5-5.1); Sodium 129 mmol/L (136-145)
[2021-04-28] MEDS ORDERED: Magnesium 2 GM/50 ML 2 GM in Premix Bag 1 BAG IVPB SCH (07:00)
[2021-04-28] MEDS: Sodium Chloride 0.9% 1,000 ML IV SCH (07:56)
[2021-04-28] MEDS ORDERED: Electrolyte Replacement Protocol 1 EACH FS SCH (08:00)
[2021-04-28] MEDS ORDERED: Insulin Regular 300 UNITS/3 ML VIAL SC PRN ×2 (08:10)
[2021-04-28] MEDS ORDERED: Dextrose 50% Abboject 50 ML SYRINGE SLOW IVP PRN (08:10)
[2021-04-28] MEDS ORDERED: Sodium Bicarbonate 150 MEQ in Dextrose 5% in Water 1,000 ML IV SCH (08:15)
[2021-04-28 08:32] LABS: Magnesium 1.7 mg/dL (1.6-2.6); Phosphorus 4.2 mg/dL (2.3-4.7)
[2021-04-28] MEDS ORDERED: Pantoprazole 40 MG VIAL IVP SCH (09:00)
[2021-04-28] MEDS ORDERED: Carvedilol 3.125 MG TAB PO SCH ×2 (09:00)
[2021-04-28] MEDS ORDERED: Aspirin 325 MG TAB PO SCH (09:00)
[2021-04-28] MEDS: Saccharomyces boulardii 250 MG CAP PO SCH (10:16)
[2021-04-28] MEDS: Aspirin Chewable 81 MG TAB PO SCH (10:16)
[2021-04-28] MEDS: Sodium Bicarbonate 150 MEQ in Dextrose 5% in Water 1,000 ML IV SCH (15:33)
[2021-04-28] MEDS ORDERED: cefTRIAXone\\ROCEPHIN 1 GM in Sodium Chloride 0.9% 100 ML IVPB SCH (18:00)
[2021-04-28] MEDS: Acetaminophen 325 MG TAB PO PRN (21:29)
[2021-04-28] MEDS: Enoxaparin Sodium 30 MG/0.3 ML SYRINGE SC SCH (21:29)
[2021-04-29] MEDS: Sodium Bicarbonate 150 MEQ in Dextrose 5% in Water 1,000 ML IV SCH (00:21)
[2021-04-29] MEDS: metroNIDAZOLE 500 MG in Premix Bag 1 BAG IVPB SCH ×3 (03:43→20:44)
[2021-04-29 05:12] LABS: Digoxin Less than 0.15 ng/mL (0.8-2.0)
[2021-04-29 05:17] LABS: #Eosinphils 0.1 thou/uL (0.0-0.7); #Lymphocytes 2.5 thou/uL (1.20-3.40); #Monocytes 1.2 thou/uL (0.11-0.59); #Neutrophils 9.5 thou/uL (1.40-6.50); %Basophils 0.3 % (0.0-1.0); %Lymphocytes 18.7 % (21.0-51.0); %Monocytes 9.2 % (0.0-10.0); %Neutrophils 70.8 % (42.0-75.0); Mean Corpuscular HGB CONC 32.6 g/dL (32.0-36.0); Mean Corpuscular Volume 86.1 fL (78.0-98.0); Mean Platelet Volume 7.1 fL (7.4-10.4); Platelet Count 280 thou/uL (130-400); RBC Distribution Width 13.1 % (11.5-14.5); Red Blood Cell (RBC) Count 3.55 mill/uL (4.20-5.40); White Blood Cell (WBC) Count 13.4 thou/uL (4.8-10.8)
[2021-04-29 05:27] LABS: ALT (SGPT) 9 U/L (8-55); AST (SGOT) 15 U/L (5-34); Albumin 2.3 g/dL (3.4-4.8); Alkaline Phosphatase 82 U/L (40-110); Anion Gap 10 mmol/L (10-20); BUN (Urea Nitrogen) 7 mg/dL (9.8-20.1); Bilirubin, Total 0.3 mg/dL (0.2-1.2); Calc. Creatinine Clearance 43 mL/min (70-130); Calcium 7.8 mg/dL (7.8-10.44); Carbon Dioxide 27 mmol/L (23-31); Chloride 97 mmol/L (98-107); Globulin 2.1 g/dL (2.4-3.5); Glucose 102 mg/dL (83-110); Magnesium 1.9 mg/dL (1.6-2.6); Phosphorus 2.3 mg/dL (2.3-4.7); Protein, Total 4.4 g/dL (5.8-8.1); Sodium 131 mmol/L (136-145)
[2021-04-29] MEDS ORDERED: Potassium Chloride 20 MEQ TAB PO SCH ×2 (07:00→17:00)
[2021-04-29] MEDS ORDERED: Magnesium 2 GM/50 ML 2 GM in Premix Bag 1 BAG IVPB SCH (07:00)
[2021-04-29] MEDS: Saccharomyces boulardii 250 MG CAP PO SCH (10:13)
[2021-04-29] MEDS: Aspirin Chewable 81 MG TAB PO SCH (10:13)
[2021-04-29] MEDS: NS 0.9% w/ 20 MEQ KCL 1,000 ML/1,000 ML BAG IV SCH ×3 (10:15→20:43)
[2021-04-29] MEDS: Metoprolol Tartrate 25 MG TAB PO SCH ×2 (10:39→20:43)
[2021-04-29] MEDS: K-Phos Neutral 250 MG TAB PO SCH ×2 (13:08→18:18)
[2021-04-29] MEDS: Acetaminophen 325 MG TAB PO PRN (14:55)
[2021-04-29] MEDS: Enoxaparin Sodium 30 MG/0.3 ML SYRINGE SC SCH (20:43)
[2021-04-30] MEDS: metroNIDAZOLE 500 MG in Premix Bag 1 BAG IVPB SCH ×3 (04:49→20:01)
[2021-04-30] MEDS: NS 0.9% w/ 20 MEQ KCL 1,000 ML/1,000 ML BAG IV SCH ×2 (04:49→16:09)
[2021-04-30 05:00] LABS: #Eosinphils 0.2 thou/uL (0.0-0.7); #Lymphocytes 2.1 thou/uL (1.20-3.40); #Monocytes 0.9 thou/uL (0.11-0.59); #Neutrophils 7.6 thou/uL (1.40-6.50); %Basophils 0.3 % (0.0-1.0); %Eosinophils 2.2 % (0.0-10.0); %Lymphocytes 19.1 % (21.0-51.0); %Monocytes 8.6 % (0.0-10.0); %Neutrophils 69.7 % (42.0-75.0); Hemoglobin 10.1 g/dL (12.0-16.0); Mean Corpuscular HGB CONC 32.5 g/dL (32.0-36.0); Mean Corpuscular Hemoglobin 28.5 pg (27.0-31.0); Mean Corpuscular Volume 87.8 fL (78.0-98.0); Mean Platelet Volume 7.2 fL (7.4-10.4); Platelet Count 283 thou/uL (130-400); RBC Distribution Width 13.3 % (11.5-14.5); Red Blood Cell (RBC) Count 3.54 mill/uL (4.20-5.40); White Blood Cell (WBC) Count 10.9 thou/uL (4.8-10.8)
[2021-04-30 05:15] LABS: ALT (SGPT) 7 U/L (8-55); AST (SGOT) 15 U/L (5-34); Albumin 2.4 g/dL (3.4-4.8); Alkaline Phosphatase 85 U/L (40-110); Anion Gap 10 mmol/L (10-20); BUN (Urea Nitrogen) 6 mg/dL (9.8-20.1); Bilirubin, Total 0.2 mg/dL (0.2-1.2); Calc. Creatinine Clearance 47 mL/min (70-130); Calcium 8.2 mg/dL (7.8-10.44); Carbon Dioxide 25 mmol/L (23-31); Chloride 101 mmol/L (98-107); Globulin 2.4 g/dL (2.4-3.5); Glucose 85 mg/dL (83-110); Magnesium 1.9 mg/dL (1.6-2.6); Potassium 3.7 mmol/L (3.5-5.1); Protein, Total 4.8 g/dL (5.8-8.1); Sodium 132 mmol/L (136-145)
[2021-04-30 05:18] LABS: Phosphorus 1.9 mg/dL (2.3-4.7)
[2021-04-30] MEDS ORDERED: Magnesium 2 GM/50 ML 2 GM in Premix Bag 1 BAG IVPB SCH (06:30)
[2021-04-30] MEDS: K-Phos Neutral 250 MG TAB PO SCH ×3 (09:14→16:09)
[2021-04-30] MEDS: Aspirin Chewable 81 MG TAB PO SCH (09:14)
[2021-04-30] MEDS: Acetaminophen 325 MG TAB PO PRN ×2 (09:15→20:00)
[2021-04-30] MEDS: Metoprolol Tartrate 25 MG TAB PO SCH ×2 (09:15→20:00)
[2021-04-30] MEDS: Saccharomyces boulardii 250 MG CAP PO SCH (09:15)
[2021-04-30] MEDS: PHOS-NAK 1 PKT PACK PO SCH ×2 (09:37→12:38)
[2021-04-30] MEDS: Loperamide HCl 2 MG CAP PO PRN ×2 (12:44→20:00)
[2021-04-30] MEDS: Enoxaparin Sodium 30 MG/0.3 ML SYRINGE SC SCH (20:01)
[2021-05-01] MEDS: NS 0.9% w/ 20 MEQ KCL 1,000 ML/1,000 ML BAG IV SCH ×3 (03:33→15:32)
[2021-05-01] MEDS: metroNIDAZOLE 500 MG in Premix Bag 1 BAG IVPB SCH ×2 (03:33→12:12)
[2021-05-01 04:49] LABS: #Basophils 0.1 thou/uL (0.0-0.2); #Eosinphils 0.5 thou/uL (0.0-0.7); #Lymphocytes 2.1 thou/uL (1.20-3.40); #Monocytes 0.8 thou/uL (0.11-0.59); #Neutrophils 3.9 thou/uL (1.40-6.50); %Basophils 0.8 % (0.0-1.0); %Eosinophils 6.4 % (0.0-10.0); %Monocytes 10.4 % (0.0-10.0); %Neutrophils 53.4 % (42.0-75.0); Hemoglobin 10.7 g/dL (12.0-16.0); Mean Corpuscular HGB CONC 33.3 g/dL (32.0-36.0); Mean Corpuscular Hemoglobin 29.2 pg (27.0-31.0); Mean Corpuscular Volume 87.8 fL (78.0-98.0); Mean Platelet Volume 6.9 fL (7.4-10.4); Platelet Count 291 thou/uL (130-400); RBC Distribution Width 13.2 % (11.5-14.5); Red Blood Cell (RBC) Count 3.68 mill/uL (4.20-5.40); White Blood Cell (WBC) Count 7.4 thou/uL (4.8-10.8)
[2021-05-01 05:22] LABS: Anion Gap 15 mmol/L (10-20); BUN (Urea Nitrogen) 4 mg/dL (9.8-20.1); Calc. Creatinine Clearance 50 mL/min (70-130); Calcium 8.3 mg/dL (7.8-10.44); Carbon Dioxide 22 mmol/L (23-31); Chloride 102 mmol/L (98-107); Glucose 89 mg/dL (83-110); Magnesium 1.9 mg/dL (1.6-2.6); Phosphorus 3.4 mg/dL (2.3-4.7); Potassium 4.2 mmol/L (3.5-5.1); Sodium 135 mmol/L (136-145)
[2021-05-01] MEDS ORDERED: Magnesium 2 GM/50 ML 2 GM in Premix Bag 1 BAG IVPB SCH (07:00)
[2021-05-01] MEDS: Metoprolol Tartrate 25 MG TAB PO SCH (09:10)
[2021-05-01] MEDS: Aspirin Chewable 81 MG TAB PO SCH (09:10)
[2021-05-01] MEDS: Loperamide HCl 2 MG CAP PO PRN (09:10)
[2021-05-01] MEDS: K-Phos Neutral 250 MG TAB PO SCH ×3 (09:10→16:24)
[2021-05-01] MEDS: Saccharomyces boulardii 250 MG CAP PO SCH (09:11)
[2021-05-01 15:42] VITALS: BP 170/79; TEMP 98.7
== END 2021-05-01 18:40 | disposition home health service (06) | DRG 871 ==
LOC: ERS 17:21 → 2NO 19:15
PROVIDERS: ADMIT Student in an Organized Health Care Education/Training Program; ATTEND Internal Medicine
DX: A41.9 Sepsis, unspecified organism (principal); G92.8 Other toxic encephalopathy; K57.32 Diverticulitis of large intestine without perforation or abscess without bleeding; E87.1 Hypo-osmolality and hyponatremia; E87.2 Acidosis; N17.9 Acute kidney failure, unspecified; A09 Infectious gastroenteritis and colitis, unspecified; E44.0 Moderate protein-calorie malnutrition; Z68.1 Body mass index [BMI] 19.9 or less, adult; R65.20 Severe sepsis without septic shock; I12.9 Hypertensive chronic kidney disease with stage 1 through stage 4 chronic kidney disease, or unspecified chronic kidney disease; F03.90 Unspecified dementia, unspecified severity, without behavioral disturbance, psychotic disturbance, mood disturbance, and anxiety; R13.10 Dysphagia, unspecified; K21.9 Gastro-esophageal reflux disease without esophagitis; K80.20 Calculus of gallbladder without cholecystitis without obstruction; E78.5 Hyperlipidemia, unspecified; E83.42 Hypomagnesemia; K22.2 Esophageal obstruction; E87.8 Other disorders of electrolyte and fluid balance, not elsewhere classified; N18.30 Chronic kidney disease, stage 3 unspecified; Z20.822 Contact with and (suspected) exposure to COVID-19; Z79.82 Long term (current) use of aspirin; Z79.899 Other long term (current) drug therapy; Z90.710 Acquired absence of both cervix and uterus; Z98.890 Other specified postprocedural states
CPT/HCPCS: 36415; 36416; 51702; 70450; 71045; 74177; 80048; 80053; 80162; 80306; 80307; 81003; 82140; 82550; 83605; 83690; 83735; 83880; 84100; 84443; 84484; 85025; 87040; 87045; 87046; 87324; 87328; 87329; 87427; 87449; 93005; 96365; 96366; C9113; J0696; J1650; J1956; J3475; J3480; J3490; J7050; J7070; Q9967; U0002